=== PATIENT | female | born 1950 | race Hispanic/Latino ===

== ENCOUNTER 2023-12-15 06:37 | Day surgery (SDC) | payer OTHER ==
[2023-12-13 11:00] LABS: Absolute Eosinophils 0.1 K/uL (0-0.5); Absolute Lymphocytes (CBC) 2.3 K/uL (0.7-4.9); Absolute Monocytes 0.4 K/uL (0.1-1.3); Absolute Neutrophil 3.7 K/uL (1.8-8.0); Basophils % 0.7 % (0-1.3); Eosinophils % 0.8 % (0-4.4); Hematocrit 44.7 % (36.0-45.0); Hemoglobin 14.6 g/dL (12.0-15.0); Lymphocytes % 35.3 % (15.3-44.8); MCH 29.9 pg (27.0-35.0); MCHC 32.8 g/dL (32.0-36.0); MCV 91.3 fL (80-100); MPV 9.4 fL (7.6-11.3); Monocytes % 5.8 % (3.3-12.3); Neutrophils % 57.4 % (41.7-73.7); Platelets 178 thou/uL (152-406); Red Cell Distribution Width 14.2 % (12.1-15.2)
[2023-12-13 11:20] LABS: Anion Gap 4.8 mEq/L (5.0-15.0); Potassium 3.8 mEq/L (3.5-5.1)
--- NOTE | 2023-12-14 16:45 | EKG ---
Test Date: 2023-12-13 Test Time: 10:11:34 Cupola Melter: AB MEASUREMENT RESULTS: Intervals: Rate: 73 FL: 130 QRSD: 118 QT: 446 QTc: 491 Wright: P: 33 FL: 130 QRS: -40 T: 63 INTERPRETIVE STATEMENTS: Normal sinus rhythm Left axis deviation Left ventricular hypertrophy with QRS widening Cannot rule out Septal infarct, age undetermined Abnormal ECG No previous ECG available for comparison Electronically Signed On 12-14-23 16:42:10 CDT by Ramon Wu
[2023-12-15] MEDS: NA CHLORIDE 0.9% 1,000 ML ONE (07:04)
[2023-12-15] MEDS: CEFAZOLIN SODIUM 2 GM/VIAL ONE (07:43)
[2023-12-15] MEDS: LIDOCAINE HCL/EPINEPHRINE 20 ML MDV ONE (07:43)
[2023-12-15] MEDS ORDERED: LIDOCAINE 2% MPF 5 ML VIAL ONE (08:13)
[2023-12-15] MEDS ORDERED: propofoL 200 MG/20 ML VIAL IV ONE (08:13)
[2023-12-15] MEDS ORDERED: ONDANSETRON 4 MG/2 ML VIAL ONE (08:13)
[2023-12-15] MEDS ORDERED: FENTANYL CITR 100 MCG/2 ML ONE (08:14)
[2023-12-15] MEDS ORDERED: MIDAZOLAM HCL 2 MG/2 ML INJ ONE (08:42)
[2023-12-15] MEDS ORDERED: dexAMETHasone 4 MG/ML VIAL ONE (09:09)
[2023-12-15] MEDS ORDERED: KETOROLAC 30 MG/ML INJ ONE (09:09)
--- NOTE | 2023-12-15 09:31 | P.OP ---
Preoperative diagnosis: Right of midline posterior neck cyst Postoperative diagnosis: Right of midline posterior neck cyst Primary procedure: Excision of Right of midline posterior neck cyst Anesthesia: MAC + Local Estimated blood loss: <5cc Specimen: Cultures, neck cyst Findings: ~ 3cm Right of midline posterior neck cyst Complications: None Transferred to: Recovery Room Condition: Good
[2023-12-15 10:20] VITALS: O2SAT 99
[2023-12-15 12:23] VITALS: BP 150/89; TEMP 97.1
--- NOTE | 2023-12-15 14:08 | OP ---
Date of Procedure: 12/15/2023 Surgeon: Arian Cifuentes MD, Preoperative Diagnosis: Right of midline posterior neck cyst. Postoperative Diagnosis: Right of midline posterior neck cyst. Procedure Performed: Excision of right midline posterior neck cyst. Anesthesia: MAC plus local with 1% lidocaine with epinephrine. Estimated Blood Loss: Less than 5 cc. Specimen: Culture sent for both aerobic and anaerobic speciation and a neck cyst. Findings: Approximately 3 cm right of midline posterior neck cyst. Complications: None. Disposition: Patient transferred to recovery room in good condition. Procedure In Detail: After informed consent was obtained, patient was brought to the operating room, prepped and draped in the usual sterile fashion after adequate anesthesia was achieved. I made an e lliptical incision circumferentially around in the area of the right posterior neck down to subcutane ous tissues using a 15 blade. I then used an electrocautery to dissect circumferentially around the obvious sebaceous cyst with abscess material. This was cultured for both aerobic and anaerobic speci ation. The cyst was removed in its entirety with cavity and sac surrounding and sent off for patholo gic examination. The area was copiously irrigated. Hemostasis was easily achieved with electrocaute ry. The area was copiously irrigated once again dry and then skin was reapproximated using interrupt ed 3-0 nylon sutures and a sterile dressing was placed over top. The patient tolerated the procedure without incident or complications, transferred to the PACU in good condition. All counts were correct at the end of the case. JEVON/WOLF Voice ID: [id number] Report ID: [id number]
== END 2023-12-15 11:01 | disposition home or self-care (01) ==
LOC: OR 06:37
PROVIDERS: ATTEND Surgery
PROC: 0JB40ZZ Excision of Right Neck Subcutaneous Tissue and Fascia, Open Approach (ICD-10-PCS; principal; 2023-12-15 08:15)
DX: L72.0 Epidermal cyst (principal); E11.9 Type 2 diabetes mellitus without complications; I10 Essential (primary) hypertension
CPT/HCPCS: 93005; 87070; 85025; 80048; 36415; 87205; 82947 ×2; 88304; 87075; 11423; J2704; J1100; J2001; J2250; J3010; J2405; J7030